=== PATIENT | female | born 1950 | race Asian ===

== ENCOUNTER 2016-12-16 14:57 | Emergency (ER) | payer OTHER | END 2016-12-16 15:30 | disposition home or self-care (01) | LOC: ED 14:57 | DX: Z91.81 History of falling (principal) ==

== ENCOUNTER 2019-11-13 07:30 | Emergency (ER) | payer OTHER ==
[~2019-11-13] VITALS: Ht 160 cm; Wt 77.1 kg
[2019-11-13 07:47] VITALS: TEMP 97.7
[2019-11-13 09:00] LABS: PLATELET COUNT 354 K/uL (152-353)
[2019-11-13 09:08] LABS: POTASSIUM 3.5 mmol/L (3.6-5.2)
[2019-11-13 09:48] VITALS: BP 129/83
== END 2019-11-13 10:15 | disposition home or self-care (01) ==
LOC: ED 07:30
PROVIDERS: Family Medicine
DX: I10 Essential (primary) hypertension (principal); E87.6 Hypokalemia
CPT/HCPCS: 80053; 81000; 85027; 99283

== ENCOUNTER 2021-05-08 22:56 | Emergency (ER) | payer OTHER ==
[~2021-05-08] VITALS: Ht 160 cm; Wt 83.0 kg
[2021-05-09 00:26] LABS: POTASSIUM 3.8 mmol/L (3.6-5.2)
[2021-05-09 00:48] LABS: PLATELET COUNT 207 K/uL (152-353)
[2021-05-09 04:31] VITALS: BP 143/87; TEMP 98
== END 2021-05-09 04:31 | disposition home or self-care (01) ==
LOC: ED 22:56
PROVIDERS: Emergency Medicine
DX: U07.1 COVID-19 (principal); R50.9 Fever, unspecified; R41.0 Disorientation, unspecified
CPT/HCPCS: 36415; 80048; 81000; 83605; 85027; 87040; 87635; 96360; 96361; 96365; 99284; J0696; U0003

== ENCOUNTER 2021-05-12 22:47 | Emergency (ER) | payer OTHER ==
[~2021-05-12] VITALS: Ht 160 cm; Wt 83.0 kg
[2021-05-13 00:31] LABS: POTASSIUM 3.6 mmol/L (3.6-5.2); SODIUM 139 mmol/L (136-145)
[2021-05-13 00:45] LABS: PLATELET COUNT 344 K/uL (152-353)
[2021-05-13 02:26] VITALS: BP 165/76; TEMP 98.3
== END 2021-05-13 02:26 | disposition home or self-care (01) ==
LOC: ED 22:47
PROVIDERS: Emergency Medicine
DX: U07.1 COVID-19 (principal); J12.82 Pneumonia due to coronavirus disease 2019
CPT/HCPCS: 80048; 83880; 84484; 85027; 93005; 96360; 96375; 99284; J1100

== ENCOUNTER 2021-05-18 15:42 | Outpatient (CLI) | payer OTHER | END 2021-05-18 19:42 | disposition home or self-care (01) | LOC: RAD 15:42 | PROVIDERS: ATTEND Family Medicine | DX: R05 Cough (principal); U07.1 COVID-19; R53.83 Other fatigue ==

== ENCOUNTER 2021-06-01 10:33 | Outpatient (CLI) | payer OTHER | END 2021-06-01 22:14 | disposition home or self-care (01) | LOC: LAB 10:33 | PROVIDERS: ATTEND Family Medicine | DX: Z20.822 Contact with and (suspected) exposure to COVID-19 (principal) | CPT/HCPCS: 87635; G2023; U0003 ==